=== PATIENT | female | born 1955 | race Caucasian/White ===

== ENCOUNTER → 2016-09-26 | Outpatient (CLI) | payer BC ==
--- NOTE | 2016-09-27 11:33 | NM ---
EXAMINATION TYPE: NM thyroid image w uptake DATE OF EXAM: 09/27/2016 11:11 AM COMPARISON: NONE HISTORY: Nontoxic thyroid nodule TECHNIQUE: After the intravenous administration of 10.67 mCi Tc 99m Sodium Pertechnetate, thyroid ruby ging is performed 10 minutes post injection. Thyroid iodine uptake is calculated after the oral admin istration of 20 uCi I-131 capsule. FINDINGS: There is questionable decreased radio pharmaceutical trapping at the lower poles of the thy roid. The 4 hour iodine uptake is calculated at 8% (normal range 8-14%). The 24-hour iodine uptake i s calculated at 19.9% (normal range 15-35%). IMPRESSION: Question decreased radiopharmaceutical trapping lower poles left and right thyroid gland, correlation with ultrasound suggested
== END | disposition home or self-care (01) ==
LOC: RADNMMAIN 10:02
PROVIDERS: ATTEND Internal Medicine Endocrinology, Diabetes & Metabolism
DX: E04.1 Nontoxic single thyroid nodule (principal)
CPT/HCPCS: 78014; A9528; A9512